=== PATIENT | male | born 1965 | race Caucasian/White ===

== ENCOUNTER 2024-12-18 08:15 | Emergency (ER) | payer SELFPAY ==
[2024-12-18] MEDS ORDERED: Sodium Chloride 0.9% 10 ML Syringe FLUSH PRN (08:29)
[2024-12-18] MEDS: Sodium Chloride 0.9% 1,000 ML IV ONE (08:40)
[2024-12-18] MEDS: Ondansetron 4 MG/2 ML SDV IVPUSH ONE (08:40)
[2024-12-18 08:50] LABS: BASOPHILS ABSOLUTE AUTO 0.02 10^3/uL (0.00-0.10); BASOPHILS PERCENT AUTO 0.3 % (0.0-1.0); EOSINOPHILS ABSOLUTE AUTO 0.03 10^3/uL (0.10-0.30); EOSINOPHILS PERCENT AUTO 0.4 % (1.0-3.0); HEMOGLOBIN 14.2 g/dL (13.0-17.0); IMMATURE GRAN ABSOLUTE AUTO 0.01 10^3/uL (0.00-0.04); IMMATURE GRAN PERCENT AUTO 0.1 % (0.0-0.4); LYMPHOCYTES ABSOLUTE AUTO 1.84 10^3/uL (1.00-4.00); LYMPHOCYTES PERCENT AUTO 25.4 % (20.0-40.0); MEAN CORPUSCULAR HEMOGLOBIN 27.3 pg (27.0-31.0); MEAN CORPUSCULAR VOLUME 82.7 fL (82.0-92.0); MEAN PLATELET VOLUME 9.2 fL (7.4-10.4); MONOCYTES ABSOLUTE AUTO 0.43 10^3/uL (0.10-0.80); MONOCYTES PERCENT AUTO 5.9 % (2.0-8.0); NEUTROPHILS ABSOLUTE AUTO 4.92 10^3/uL (2.50-7.00); NEUTROPHILS PERCENT AUTO 67.9 % (50.0-70.0); PLATELET COUNT,PLT 271 10^3/uL (150-400); RED CELL DISTRIBUTION WIDTH 13.5 % (11.5-14.5); WHITE BLOOD CELL COUNT,WBC 7.25 10^3/uL (5.00-10.00)
[2024-12-18 09:05] LABS: ANION GAP 18.8 mmol/L (5-15); BILIRUBIN TOTAL 0.5 mg/dL (0.2-1.0); CALCIUM 9.4 mg/dL (8.7-10.3); CARBON DIOXIDE,CO2 22.2 mmol/L (21.0-32.0); CREATININE 1.19 mg/dL (0.51-1.17); EST CRCL DRUG DOSING (CG) 72.07 mL/min; PROTEIN TOTAL,TP 7.4 g/dL (6.4-8.2)
[2024-12-18 09:08] LABS: CORONAVIRUS COVID-19 NAA NEGATIVE (NEGATIVE); INFLUENZA A NAA NEGATIVE (NEGATIVE); INFLUENZA B NAA NEGATIVE (NEGATIVE)
[2024-12-18 09:28] VITALS: BP 131/75; PULSE 69
[2024-12-18] MEDS: Promethazine 25 MG Tab PO PRN (09:29)
[2024-12-18] MEDS: Meclizine 25 MG Tab PO ONE (09:30)
== END 2024-12-18 10:30 | disposition home or self-care (01) ==
LOC: KA.ED 08:15
DX: H81.11 Benign paroxysmal vertigo, right ear (principal); R11.2 Nausea with vomiting, unspecified; Z79.899 Other long term (current) drug therapy
CPT/HCPCS: 0240U; 36415; 80053; 83605; 83690; 83880; 84484; 85025; 96361; 96374; 99284-25; A9270-GY; J2405; J7030